=== PATIENT | female | born 1945 | race Caucasian/White ===

== ENCOUNTER 2017-01-07 13:58 | Inpatient (IN) | payer MEDICARE, BC ==
[2017-01-07] MEDS ORDERED: IPRATROPIUM 0.5 MG/2.5 ML NEBU INHALATION STA (14:31)
[2017-01-07] MEDS ORDERED: ALBUTEROL NEBULIZED 2.5 MG/3 ML INHALATION STA (14:31)
[2017-01-07] MEDS ORDERED: methylPREDNISolone SOD SUCCI 125 MG/2 ML VIAL IV STA (14:31)
--- NOTE | 2017-01-07 14:37 | ED ---
General Adult HPI - General Chief complaint: Shortness of Breath Stated complaint: SOB Time Seen by Provider: 01/07/17 14:18 Source: patient, RN notes reviewed, old records reviewed Mode of arrival: wheelchair Limitations: no limitations - History of Present Illness Initial comments: 71-year-old with history of lung cancer and bone cancer presents for evaluation of shortness of breath. Patient states she has been short of breath for weeks to months. Also reports a mild cough which is somewhat productive. Patient's last chemotherapy for her lung cancer was one month ago. Patient is somewhat confused on examination, additional history obtained from the patient's and daughter who are at bedside. Patient had a home nurse evaluate her today, was noted to be hypoxic in the high 80s at home. Patient does not wear home oxygen normally. She has remote history of tobacco use proximally 30 pack years. Patient does complain of subjective fevers. No abdominal pain. No nausea vomiting or diarrhea. - Related Data Home Medications Medication Instructions Recorded Confirmed HYDROcodone/APAP 10-325MG [[place] 1 - 2 tab PO Q6H PRN 01/07/17 01/07/17 10-325] LORazepam [Ativan] 0.5 mg PO HS PRN 01/07/17 01/07/17 Lactulose 10 gm PO BID 01/07/17 01/07/17 Levothyroxine Sodium [Synthroid] 75 mcg PO DAILY 01/07/17 01/07/17 Morphine Sulfate ER [Ms Contin 30 mg PO Q12HR 01/07/17 01/07/17 30Mg] Omeprazole [PriLOSEC] 20 mg PO AC-BID 01/07/17 01/07/17 Oxybutynin Chloride [Ditropan] 5 mg PO TID 01/07/17 01/07/17 Allergies Allergy/AdvReac Type Severity Reaction Status Date / Time No Known Allergies Allergy Verified 01/07/17 15:19 Review of Systems ROS Statement: Those systems with pertinent positive or pertinent negative responses have been documented in the HPI. ROS Other: All systems not noted in ROS Statement are negative. Past Medical History Past Medical History: Cancer Additional Past Medical History / Comment(s): lung cancer, bone cancer History of Any Multi-Drug Resistant Organisms: None Reported Past Surgical History: Back Surgery Past Psychological History: No Psychological Hx Reported Smoking Status: Former smoker Past Alcohol Use History: None Reported Past Drug Use History: None Reported General Exam Limitations: no limitations General appearance: alert, in no apparent distress Head exam: Present: atraumatic, normocephalic Eye exam: Present: normal appearance, PERRL ENT exam: Present: mucous membranes dry Neck exam: Present: normal inspection. Absent: tenderness, meningismus Respiratory exam: Present: wheezes, prolonged expiratory. Absent: respiratory distress Cardiovascular Exam: Present: regular rate, normal rhythm GI/Abdominal exam: Present: soft. Absent: distended, tenderness Extremities exam: Present: normal inspection, other ( left lower extremity swelling.). Absent: calf tenderness Neurological exam: Present: alert. Absent: oriented X3 ( 2), motor sensory deficit Psychiatric exam: Present: normal affect, normal mood Skin exam: Present: warm, dry, intact. Absent: cyanosis, diaphoretic Course Vital Signs 01/07/17 01/07/17 01/07/17 14:07 14:20 14:54 Temperature 97.9 F Pulse Rate 94 93 Respiratory 20 24 18 Rate Blood Pressure 126/73 O2 Sat by Pulse 88 L Oximetry 01/07/17 01/07/17 01/07/17 15:00 15:05 15:30 Temperature Pulse Rate 95 96 94 Respiratory 24 18 22 Rate Blood Pressure 119/56 116/58 O2 Sat by Pulse 95 96 Oximetry EKG Findings - EKG Comments: EKG Findings:: EKG shows sinus rhythm, left atrial enlargement, left bundle branch block, this does not meet [place] criteria. Ventricular rate 89,. Vital 156, QRS duration 144, QTC 498 Medical Decision Making - Medical Decision Making 71-year-old female with stage IV lung cancer presents for evaluation of hypoxia and shortness of breath. On examination patient does have bilateral and x-ray wheezing. No formal diagnosis of COPD, however she does have a significant history of tobacco use. X-rays obtained, shows right pleural reaction, large spiculated mass, no focal pneumonia. Laboratory studies reveal mild pancytopenia, white blood cell count 3.4, hemoglobin 10.4, platelets 127. Lactic acid is normal at 1.5. Troponin is elevated at 0.058. There is no active chest pain. Previous EKGs will be obtained for comparison. Case is discussed with cardiology, Dr. Riggins, patient will be given an aspirin, and enzymes will be trended. Diagnosis: Reactive airway disease, stage IV lung cancer, dehydration - Lab Data Result diagrams: 01/07/17 14:20 01/07/17 14:20 Lab Results 01/07/17 01/07/17 01/07/17 Range/Units 14:20 14:20 14:20 WBC 3.4 L (3.8-10.6) k/uL RBC 3.31 L (3.80-5.40) m/uL Hgb 10.4 L (11.4-16.0) gm/dL Hct 33.0 L (34.0-46.0) % MCV 99.7 (80.0-100.0) fL MCH 31.3 (25.0-35.0) pg MCHC 31.4 (31.0-37.0) g/dL RDW 16.0 H (11.5-15.5) % Plt Count 127 L (150-450) k/uL Neutrophils % 65 % Lymphocytes % 19 % Monocytes % 7 % Eosinophils % 6 % Basophils % 1 % Neutrophils # 2.2 (1.3-7.7) k/uL Lymphocytes # 0.6 L (1.0-4.8) k/uL Monocytes # 0.3 (0-1.0) k/uL Eosinophils # 0.2 (0-0.7) k/uL Basophils # 0.0 (0-0.2) k/uL Hypochromasia Moderate Poikilocytosis Slight Macrocytosis Slight PT (9.0-12.0) sec INR (<1.2) APTT (22.0-30.0) sec VBG pH (7.31-7.41) VBG pCO2 (37-51) mmHg VBG HCO3 (24-28) mmol/L Sodium 142 (137-145) mmol/L Potassium 4.1 (3.5-5.1) mmol/L Chloride 104 (98-107) mmol/L Carbon Dioxide 26 (22-30) mmol/L Anion Gap 12 mmol/L BUN 16 (7-17) mg/dL Creatinine 0.82 (0.52-1.04) mg/dL Est GFR (MDRD) Af Amer >60 (>60 ml/min/1.73 sqM) Est GFR (MDRD) Non-Af >60 (>60 ml/min/1.73 sqM) Glucose 73 L (74-99) mg/dL Plasma Lactic Acid Demar (0.7-2.0) mmol/L Calcium 8.5 (8.4-10.2) mg/dL Magnesium 2.1 (1.6-2.3) mg/dL Total Bilirubin 0.6 (0.2-1.3) mg/dL AST 60 H (14-36) U/L ALT 36 (9-52) U/L Alkaline Phosphatase 245 H (38-126) U/L Total Creatine Kinase 52 (30-135) U/L CK-MB (CK-2) 0.6 (0.0-2.4) ng/mL CK-MB (CK-2) Rel Index 1.2 Troponin I 0.058 H* (0.000-0.034) ng/mL NT-Pro-B Natriuret Pep pg/mL Total Protein 8.1 (6.3-8.2) g/dL Albumin 3.5 (3.5-5.0) g/dL 01/07/17 01/07/17 01/07/17 Range/Units 14:20 14:20 14:20 WBC (3.8-10.6) k/uL RBC (3.80-5.40) m/uL Hgb (11.4-16.0) gm/dL Hct (34.0-46.0) % MCV (80.0-100.0) fL MCH (25.0-35.0) pg MCHC (31.0-37.0) g/dL RDW (11.5-15.5) % Plt Count (150-450) k/uL Neutrophils % % Lymphocytes % % Monocytes % % Eosinophils % % Basophils % % Neutrophils # (1.3-7.7) k/uL Lymphocytes # (1.0-4.8) k/uL Monocytes # (0-1.0) k/uL Eosinophils # (0-0.7) k/uL Basophils # (0-0.2) k/uL Hypochromasia Poikilocytosis Macrocytosis PT 12.4 H (9.0-12.0) sec INR 1.3 H (<1.2) APTT 22.7 (22.0-30.0) sec VBG pH (7.31-7.41) VBG pCO2 (37-51) mmHg VBG HCO3 (24-28) mmol/L Sodium (137-145) mmol/L Potassium (3.5-5.1) mmol/L Chloride (98-107) mmol/L Carbon Dioxide (22-30) mmol/L Anion Gap mmol/L BUN (7-17) mg/dL Creatinine (0.52-1.04) mg/dL Est GFR (MDRD) Af Amer (>60 ml/min/1.73 sqM) Est GFR (MDRD) Non-Af (>60 ml/min/1.73 sqM) Glucose (74-99) mg/dL Plasma Lactic Acid Demar 1.5 (0.7-2.0) mmol/L Calcium (8.4-10.2) mg/dL Magnesium (1.6-2.3) mg/dL Total Bilirubin (0.2-1.3) mg/dL AST (14-36) U/L ALT (9-52) U/L Alkaline Phosphatase (38-126) U/L Total Creatine Kinase (30-135) U/L CK-MB (CK-2) (0.0-2.4) ng/mL CK-MB (CK-2) Rel Index Troponin I (0.000-0.034) ng/mL NT-Pro-B Natriuret Pep 379 pg/mL Total Protein (6.3-8.2) g/dL Albumin (3.5-5.0) g/dL 01/07/17 Range/Units 14:20 WBC (3.8-10.6) k/uL RBC (3.80-5.40) m/uL Hgb (11.4-16.0) gm/dL Hct (34.0-46.0) % MCV (80.0-100.0) fL MCH (25.0-35.0) pg MCHC (31.0-37.0) g/dL RDW (11.5-15.5) % Plt Count (150-450) k/uL Neutrophils % % Lymphocytes % % Monocytes % % Eosinophils % % Basophils % % Neutrophils # (1.3-7.7) k/uL Lymphocytes # (1.0-4.8) k/uL Monocytes # (0-1.0) k/uL Eosinophils # (0-0.7) k/uL Basophils # (0-0.2) k/uL Hypochromasia Poikilocytosis Macrocytosis PT (9.0-12.0) sec INR (<1.2) APTT (22.0-30.0) sec VBG pH 7.33 (7.31-7.41) VBG pCO2 49 (37-51) mmHg VBG HCO3 26 (24-28) mmol/L Sodium (137-145) mmol/L Potassium (3.5-5.1) mmol/L Chloride (98-107) mmol/L Carbon Dioxide (22-30) mmol/L Anion Gap mmol/L BUN (7-17) mg/dL Creatinine (0.52-1.04) mg/dL Est GFR (MDRD) Af Amer (>60 ml/min/1.73 sqM) Est GFR (MDRD) Non-Af (>60 ml/min/1.73 sqM) Glucose (74-99) mg/dL Plasma Lactic Acid Demar (0.7-2.0) mmol/L Calcium (8.4-10.2) mg/dL Magnesium (1.6-2.3) mg/dL Total Bilirubin (0.2-1.3) mg/dL AST (14-36) U/L ALT (9-52) U/L Alkaline Phosphatase (38-126) U/L Total Creatine Kinase (30-135) U/L CK-MB (CK-2) (0.0-2.4) ng/mL CK-MB (CK-2) Rel Index Troponin I (0.000-0.034) ng/mL NT-Pro-B Natriuret Pep pg/mL Total Protein (6.3-8.2) g/dL Albumin (3.5-5.0) g/dL Disposition Clinical Impression: Acute exacerbation of chronic obstructive airways disease, Dehydration Disposition: ADMITTED IP TO THIS [facility] Condition: Stable Referrals: Alexa Lozoya DO [Primary Care Provider] - 1-2 days Decision to Admit Reason: Admit from EC Decision Date: 01/07/17 Decision Time: 16:10
[2017-01-07 14:59] LABS: VBG PH 7.33 (7.31-7.41)
[2017-01-07 15:02] LABS: Basophils % (A) 1 %; CH 30.8; CHCM 31.2; Eosinophils # (A) 0.2 k/uL (0-0.7); Eosinophils % (A) 6 %; HDW 3.82; HGB 10.4 gm/dL (11.4-16.0); Hypochromasia Moderate; Luc % (Auto) 3; Lymphocytes # (A) 0.6 k/uL (1.0-4.8); Lymphocytes % (A) 19 %; MCH 31.3 pg (25.0-35.0); MCHC 31.4 g/dL (31.0-37.0); MCV 99.7 fL (80.0-100.0); Macrocytosis Slight; Mean Platelet Volume 8.2; Monocytes # (A) 0.3 k/uL (0-1.0); Monocytes % (A) 7 %; Neutrophils # (A) 2.2 k/uL (1.3-7.7); Neutrophils % (A) 65 %; Poikilocytosis Slight; RBC 3.31 m/uL (3.80-5.40); WBC 3.4 k/uL (3.8-10.6); WBC (Perox) 3.15
[2017-01-07 15:10] LABS: ALT 36 U/L (9-52); AST 60 U/L (14-36); Alkaline Phosphatase 245 U/L (38-126); Anion Gap 12 mmol/L; Blood Urea Nitrogen 16 mg/dL (7-17); Calcium 8.5 mg/dL (8.4-10.2); Carbon Dioxide 26 mmol/L (22-30); Chloride 104 mmol/L (98-107); Glucose 73 mg/dL (74-99); Magnesium 2.1 mg/dL (1.6-2.3); Non-African American GFR(MDRD) >60 (>60 ml/min/1.73 sqM); Potassium 4.1 mmol/L (3.5-5.1); Sodium 142 mmol/L (137-145); Total Bilirubin 0.6 mg/dL (0.2-1.3); Total Protein 8.1 g/dL (6.3-8.2)
[2017-01-07 15:14] LABS: INR 1.3 (<1.2); Partial Thromboplastin Time 22.7 sec (22.0-30.0); Prothrombin Time 12.4 sec (9.0-12.0)
--- NOTE | 2017-01-07 15:27 | XR ---
EXAMINATION TYPE: XR chest 2V DATE OF EXAM: 01/07/2017 HISTORY: difficulty breathing. REFERENCE: None. FINDINGS: Tubing projects over the right hemithorax. The tip appears to be at the cavoatrial junction . There is increased density at the right lung base. There is a pleural reaction on the right. The left lung is clear. Heart size upper limits of normal in size. On the lateral projection there is ar 8.6 x 6.5 cm spiculated mass. IMPRESSION: 1. RIGHT-SIDED PLEURAL REACTION. 2. LARGE SPICULATED MASS SEEN ONLY CLEARLY ON THE LATERAL PROJECTION. A CT SCAN OF THE CHEST WOULD BE SUGGESTED.
[2017-01-07 15:34] LABS: Creatine Kinase MB 0.6 ng/mL (0.0-2.4)
[2017-01-07 15:39] LABS: Troponin I 0.058 ng/mL (0.000-0.034)
[2017-01-07] MEDS ORDERED: IPRATROPIUM-ALBUTEROL 3 ML NEB INHALATION PRN ×2 (16:05→19:43)
[2017-01-07] MEDS ORDERED: NALOXONE 0.4 MG/ML 1 ML VIAL IV PRN (16:10)
[2017-01-07] MEDS ORDERED: ACETAMINOPHEN TAB 325 MG TAB PO PRN (16:10)
[2017-01-07] MEDS ORDERED: ASPIRIN 325 MG TAB PO STA (16:12)
[2017-01-07] MEDS: MORPHINE SULFATE 10 MG/ML SYRINGE IV PRN (19:11)
[2017-01-07 19:40] LABS: Creatine Kinase MB 0.5 ng/mL (0.0-2.4)
[2017-01-07 19:43] LABS: Troponin I 0.041 ng/mL (0.000-0.034)
[2017-01-07] MEDS: INSULIN LISPRO (humaLOG) 300 UNIT/3 ML VIAL SQ SCH (20:45)
[2017-01-07 20:50] LABS: Glucose,Whole Blood 89 mg/dL (75-99)
[2017-01-07] MEDS: OXYBUTYNIN CHLORIDE 5 MG TAB PO SCH (20:50)
[2017-01-07] MEDS: LACTULOSE 20 GM/30 ML CUP PO SCH (20:50)
[2017-01-07] MEDS: D5-0.45% NACL WITH KCL 20MEQ/L 1,000 ML IV SCH (20:55)
[2017-01-07] MEDS: SYMBICORT 160-4.5 MCG INHALER INHALATION SCH (21:32)
[2017-01-07] MEDS: IPRATROPIUM-ALBUTEROL 3 ML NEB INHALATION SCH (21:32)
[2017-01-07] MEDS: MORPHINE SULFATE ER 30 MG TABLET PO SCH (23:28)
[2017-01-08] MEDS: methylPREDNISolone SOD SUCCI 125 MG/2 ML VIAL IV SCH ×5 (00:06→23:12)
[2017-01-08] MEDS: HYDROcodone/APAP 10-325MG 1 EACH TAB PO PRN ×3 (00:08→21:50)
[2017-01-08 03:17] LABS: Anisocytosis Slight; Basophils % (A) 1 %; CH 30.9; CHCM 30.6; Eosinophils % (A) 1 %; HCT 28.5 % (34.0-46.0); Hypochromasia Marked; Luc # (Auto) 0.04; Luc % (Auto) 2; Lymphocytes # (A) 0.4 k/uL (1.0-4.8); Lymphocytes % (A) 18 %; MCH 30.7 pg (25.0-35.0); MCHC 30.1 g/dL (31.0-37.0); MCV 101.9 fL (80.0-100.0); Macrocytosis Slight; Mean Platelet Volume 8.3; Monocytes % (A) 2 %; Neutrophils # (A) 1.8 k/uL (1.3-7.7); Neutrophils % (A) 77 %; Poikilocytosis Slight; RDW 16.2 % (11.5-15.5); WBC 2.4 k/uL (3.8-10.6)
[2017-01-08 03:27] LABS: HGB 8.6 gm/dL (11.4-16.0)
[2017-01-08 03:29] LABS: Anion Gap 11 mmol/L; Blood Urea Nitrogen 18 mg/dL (7-17); Calcium 7.9 mg/dL (8.4-10.2); Carbon Dioxide 21 mmol/L (22-30); Chloride 106 mmol/L (98-107); Glucose 147 mg/dL (74-99); Non-African American GFR(MDRD) >60 (>60 ml/min/1.73 sqM); Potassium 4.5 mmol/L (3.5-5.1); Sodium 138 mmol/L (137-145)
[2017-01-08 04:04] LABS: Troponin I 0.053 ng/mL (0.000-0.034)
[2017-01-08] MEDS: LEVOTHYROXINE 75 MCG TAB PO SCH (05:10)
[2017-01-08] MEDS: LORazepam 0.5 MG TAB PO PRN ×2 (05:10→23:12)
[2017-01-08] MEDS: MORPHINE SULFATE 10 MG/ML SYRINGE IV PRN (05:11)
[2017-01-08 06:11] LABS: Glucose,Whole Blood 137 mg/dL (75-99)
[2017-01-08] MEDS: INSULIN LISPRO (humaLOG) 300 UNIT/3 ML VIAL SQ SCH ×4 (06:51→20:56)
--- NOTE | 2017-01-08 07:38 | XR ---
EXAMINATION TYPE: XR chest 2V DATE OF EXAM: 01/08/2017 HISTORY: Copd Exac. REFERENCE: Previous study dated 01/07/2017. FINDINGS: Catheter tubing projects over the right chest. The tip appears to be in the superior vena c vignesh. There is right basilar airspace disease. There is shift of the mediastinal structures towards the rig ht. The heart is enlarged. There continues to be a spiculated density on the lateral view just environmental web crawler ior to the heart. IMPRESSION: NO SIGNIFICANT INTERVAL CHANGE IN THE APPEARANCE OF THE CHEST.
[2017-01-08] MEDS: PANTOPRAZOLE 40 MG TABLET PO SCH ×2 (08:06→16:34)
[2017-01-08] MEDS: D5-0.45% NACL WITH KCL 20MEQ/L 1,000 ML IV SCH ×2 (08:06→23:14)
[2017-01-08] MEDS: MORPHINE SULFATE ER 30 MG TABLET PO SCH ×2 (08:06→20:55)
[2017-01-08] MEDS: OXYBUTYNIN CHLORIDE 5 MG TAB PO SCH ×3 (08:06→20:56)
[2017-01-08] MEDS: LACTULOSE 20 GM/30 ML CUP PO SCH ×2 (08:07→20:55)
[2017-01-08] MEDS ORDERED: predniSONE 50 MG TAB PO SCH (09:00)
[2017-01-08] MEDS: SYMBICORT 160-4.5 MCG INHALER INHALATION SCH ×2 (09:38→21:04)
[2017-01-08] MEDS: IPRATROPIUM-ALBUTEROL 3 ML NEB INHALATION SCH ×4 (09:38→21:04)
--- NOTE | 2017-01-08 09:39 | P.CRDCN ---
History of Present Illness Consult date: 01/08/17 Requesting physician: Vania Martins Reason for Consult (text): LBBB, elevated trop Chief complaint: low oxygen saturation History of present illness: this is a pleasant 71-year-old female patient with history of stage IV lung cancer with metastasis to the bone, left chemotherapy treatment about a month ago, recently completed treatment with Keytruda. she presented to the emergency department after she was noted to have a low oxygen saturation at home by visiting nurse, and the high 80s. Patient does not wear home oxygen and has not previously been noted to have low oxygen saturation.the patient is quite drowsy so most most of the HPI was obtained from the chart and family. According to family, patient has been complaining of intermittent pain in different areas of her body including her back, chest, hip and abdomen. Patient does verbalize having shortness of breath with activity. EKG on admission showed sinus rhythm with left bundle branch block, it is unclear if this is new as we have no EKG to compare. According to family, patient has had previous cardiac workup many years ago due to a murmur and an irregular heart beat. mild elevation in troponins were noted at 0.058, 0.041 and 0.053. Her proBNP was not elevated at 379. initial labs showed a hemoglobin of 10.4 with a repeat of 8.6 this morning. chest x-ray showed right-sided pleural reaction with a large spiculated mass seen clearly on the lateral projection and recommended a computed tomography scan of the chest. In discussing with the family, they're unclear as to what the plan R prognosis for her cancer is, they' re currently not happy with her oncologist out of [facility]. Upon examination , patient is resting comfortably in bed in no acute distress. She is quite drowsy which according to the family has been normal for her recently. She has no current complaints of chest discomfort, palpitations, dizziness or lightheadedness has had no syncope or edema is of breath at rest with head of bed flat. Past Medical History Past Medical History: Cancer, GERD/Reflux, Hypertension Additional Past Medical History / Comment(s): lung cancer, bone cancer, ulcer in past,hiatal hernia, constipation-no bm in 5 days History of Any Multi-Drug Resistant Organisms: None Reported Past Surgical History: Back Surgery, Section, Cholecystectomy, Orthopedic Surgery, Tubal Ligation Additional Past Surgical History / Comment(s): lt foot sx , 3 back sx, 2 c- sections egd/colonoscopy Past Anesthesia/Blood Transfusion Reactions: No Reported Reaction Additional Past Anesthesia/Blood Transfusion Reaction / Comment(s): "very clausterphobic" Smoking Status: Former smoker - Past Family History Father Family Medical History: Cancer Mother Additional Family Medical History / Comment(s): "had a split personality" Medications and Allergies Home Medications Medication Instructions Recorded Confirmed Type HYDROcodone/APAP 10-325MG [[place] 1 - 2 tab PO Q6H PRN 01/07/17 01/07/17 History 10-325] LORazepam [Ativan] 0.5 mg PO HS PRN 01/07/17 01/07/17 History Lactulose 10 gm PO BID 01/07/17 01/07/17 History Levothyroxine Sodium [Synthroid] 75 mcg PO DAILY 01/07/17 01/07/17 History Morphine Sulfate ER [Ms Contin 30 mg PO Q12HR 01/07/17 01/07/17 History 30Mg] Omeprazole [PriLOSEC] 20 mg PO AC-BID 01/07/17 01/07/17 History Oxybutynin Chloride [Ditropan] 5 mg PO TID 01/07/17 01/07/17 History Allergies Allergy/AdvReac Type Severity Reaction Status Date / Time No Known Allergies Allergy Verified 01/07/17 15:19 Physical Exam Vitals: Vital Signs Temp Pulse Pulse Resp BP BP Pulse Ox 01/08/17 04:00 97.5 F L 75 16 129/72 94 L 01/07/17 23:30 98 16 110/73 94 L 01/07/17 21:41 91 01/07/17 21:32 89 94 L 01/07/17 20:00 97.7 F 97 16 105/72 95 01/07/17 19:23 95 18 01/07/17 18:54 97.8 F 99 16 126/68 94 L 01/07/17 17:59 98.6 F 78 20 132/90 98 01/07/17 16:26 103 H 16 126/51 96 01/07/17 15:30 94 22 116/58 96 01/07/17 15:05 96 18 01/07/17 15:00 95 24 119/56 95 11/03/17 14:54 93 18 01/07/17 14:20 24 01/07/17 14:07 97.9 F 94 20 126/73 88 L Intake and Output 01/07/17 01/08/17 01/08/17 22:59 06:59 14:59 Intake Total 50 750 Output Total 25 200 Balance 25 550 Intake: Intake, IV Titration 750 Amount D5-0.45% NaCl with KCl 750 20Meq/l 1,000 ml @ 75 mls /hr IV .[id number] KHUSHI Rx#: [id number] Oral 50 Output: Urine 25 200 Other: # Voids 1 Weight 61 kg PHYSICAL EXAMINATION: HEENT: Head is atraumatic, normocephalic. Pupils equal, round. Neck is supple. There is no elevated jugular venous pressure. HEART EXAMINATION: Heart sounds regular, S1 and S2 with a systolic murmur. CHEST EXAMINATION: Lungs reveal diminished air entry bilaterally. No chest wall tenderness is noted on palpation or with deep breathing. ABDOMEN: Soft, nontender. Bowel sounds are heard. No organomegaly noted. EXTREMITIES: 2+ peripheral pulses with no evidence of peripheral edema and no calf tenderness noted. NEUROLOGIC patient is awake, drowsy and oriented x3. . Results 01/08/17 02:54 01/08/17 02:54 Cardiac Enzymes 01/07/17 01/07/17 01/07/17 Range/Units 14:20 14:20 18:50 AST 60 H (14-36) U/L CK-MB (CK-2) 0.6 0.5 (0.0-2.4) ng/mL Troponin I 0.058 H* 0.041 H* (0.000-0.034) ng/mL 01/08/17 Range/Units 02:54 AST (14-36) U/L CK-MB (CK-2) 1.0 (0.0-2.4) ng/mL Troponin I 0.053 H* (0.000-0.034) ng/mL Coagulation 01/07/17 Range/Units 14:20 PT 12.4 H (9.0-12.0) sec APTT 22.7 (22.0-30.0) sec CBC 01/07/17 01/08/17 Range/Units 14:20 02:54 WBC 3.4 L 2.4 L (3.8-10.6) k/uL RBC 3.31 L 2.80 L (3.80-5.40) m/uL Hgb 10.4 L 8.6 L D (11.4-16.0) gm/dL Hct 33.0 L 28.5 L (34.0-46.0) % Plt Count 127 L 108 L (150-450) k/uL Comprehensive Metabolic Panel 01/07/17 01/08/17 Range/Units 14:20 02:54 Sodium 142 138 (137-145) mmol/L Potassium 4.1 4.5 (3.5-5.1) mmol/L Chloride 104 106 (98-107) mmol/L Carbon Dioxide 26 21 L (22-30) mmol/L BUN 16 18 H (7-17) mg/dL Creatinine 0.82 0.70 (0.52-1.04) mg/dL Glucose 73 L 147 H (74-99) mg/dL Calcium 8.5 7.9 L (8.4-10.2) mg/dL AST 60 H (14-36) U/L ALT 36 (9-52) U/L Alkaline Phosphatase 245 H (38-126) U/L Total Protein 8.1 (6.3-8.2) g/dL Albumin 3.5 (3.5-5.0) g/dL Current Medications Generic Name Dose Route Start Last Admin Trade Name Freq PRN Reason Stop Dose Admin Acetaminophen 650 mg 01/07/17 16:10 Tylenol Tab PO Q6HR PRN Mild Pain or Fever > 100.5 Hydrocodone Bitart/Acetaminophen 1 each 01/07/17 19:44 01/08/17 00:08 [place] 10 PO 1 each Q6H PRN Administration Mild to Moderate Pain Albuterol/Ipratropium 3 ml 01/07/17 19:43 Duoneb 0.5 Mg-3 Mg/3 Ml Soln INHALATION RT-Q2H PRN Shortness Of Breath Or Wheezing Albuterol/Ipratropium 3 ml 01/07/17 20:00 01/07/17 21:32 Duoneb 0.5 Mg-3 Mg/3 Ml Soln INHALATION 3 ml RT-QID KHUSHI Administration Budesonide/Formoterol Fumarate 2 puff 01/07/17 20:00 01/07/17 21:32 Symbicort 160-4.5 Mcg Inhaler INHALATION 2 puff RT-BID KHUSHI Administration Potassium Chloride/Dextrose/Sod Cl 1,000 mls @ 75 mls/hr 01/07/17 18:00 01/08 08:06 D5%-1/2ns-Kcl 20 Meq/L Iv Solution IV 75 mls/hr .[id number] KHUSHI Administration Insulin Human Lispro 0 unit 01/07/17 21:00 01/08/17 06:51 Humalog SQ Not Given ACHS [facility] Protocol Lactulose 10 gm 01/07/17 21:00 01/08/17 08:07 Cephulac PO 10 gm BID KHUSHI Administration Levothyroxine Sodium 75 mcg 01/08/17 06:30 01/08/17 05:10 Synthroid PO 75 mcg 0630 KHUSHI Administration Lorazepam 0.5 mg 01/07/17 19:44 01/08/17 05:10 Ativan PO 0.5 mg HS PRN Administration Anxiety Methylprednisolone Sodium Succinate 60 mg 01/08/17 00:00 01/08/17 05:10 Solu-Medrol IV 60 mg Q6HR KHUSHI Administration Morphine Sulfate 4 mg 01/07/17 16:10 01/08/17 05:11 Morphine Sulfate (Inj) IV 4 mg Q4HR PRN Administration Severe Pain Morphine Sulfate 30 mg 01/07/17 21:00 01/08/17 08:06 Ms Contin PO 30 mg Q12HR KHUSHI Administration Naloxone HCl 0.2 mg 01/07/17 16:10 Narcan IV Q2M PRN Opioid Reversal Oxybutynin Chloride 5 mg 01/07/17 22:00 01/08/17 08:06 Ditropan PO 5 mg TID KHUSHI Administration Pantoprazole Sodium 40 mg 01/08/17 07:30 01/08/17 08:06 Protonix PO 40 mg AC-BID KHUSHI Administration Intake and Output 01/07/17 01/08/17 01/08/17 22:59 06:59 14:59 Intake Total 50 750 Output Total 25 200 Balance 25 550 Intake: Intake, IV Titration 750 Amount D5-0.45% NaCl with KCl 750 20Meq/l 1,000 ml @ 75 mls /hr IV .[id number] KHUSHI Rx#: [id number] Oral 50 Output: Urine 25 200 Other: # Voids 1 Weight 61 kg 01/08/17 02:54 01/08/17 02:54 EKG Interpretations (text) sinus rhythm with a left bundle branch block Assessment and Plan Assessment: #1 stage IV lung cancer with metastasis #2 hypoxia #3 mild troponin leak likelysecondary to a type II event due to oxygen supply and demand mismatch #4 left bundle branch block, unknown if this is new Plan: From cardiology's perspective, we will obtain a 2-D echo with doppler to assess LV function. We will monitor the patient for further symptoms. Recommend medical management at this time. Await input form oncology. Further recommendations to follow. REPROGRAPHICS TECHNICIAN note has been reviewed, I agree with a documented findings and plan of care. Patient was seen and examined.
[2017-01-08 11:38] LABS: Glucose,Whole Blood 193 mg/dL (75-99)
--- NOTE | 2017-01-08 15:17 | ECHOF ---
Referral Reason:LBBB, elevated trop MEASUREMENTS -------- HEIGHT: 162.6 cm WEIGHT: 60.8 kg BP: IVSd: 1.3 cm (0.6 - 1.1) LVIDd: 4.0 cm (3.9 - 5.3) LVPWd: 1.2 cm (0.6 - 1.1) IVSs: 1.4 cm LVIDs: 2.7 cm LVPWs: 1.2 cm LAESV Index (A-L): 37.95 ml/m Ao Diam: 3.3 cm (2.0 - 3.7) AV Cusp: 1.2 cm (1.5 - 2.6) LA Diam: 3.8 cm (2.7 - 3.8) EPSS: 0.7 cm MV E Jeremi: 0.61 m/s MV DecT: 228 ms MV A Jeremi: 1.32 m/s MV E/A Ratio: 0.46 RAP: 5.00 mmHg RVSP: 34.83 mmHg MV EF SLOPE: 43.53 mm/s (70 - 150) MV EXCURSION: 1.47 cm (> 18.000) FINDINGS -------- Sinus rhythm. This was a technically adequate study. The left ventricular size is normal. There is moderate concentric left ventricular hypertrophy. O verall left ventricular systolic function is low-normal with, an EF between 50 - 55 %. The right ventricle is normal in size. LA is moderately dilated 34-39 ml/m2 The right atrial size is normal. The aortic valve is trileaflet, and appears structurally normal. No aortic stenosis or regurgitation. Mild mitral regurgitation is present. Mild tricuspid regurgitation present. Right ventricular systolic pressure is normal at < 35 mmHg. Trace/mild (physiologic) pulmonic regurgitation. The aortic root size is normal. There is a trivial pericardial effusion present. CONCLUSIONS -------- 1. Sinus rhythm. 2. This was a technically adequate study. 3. The left ventricular size is normal. 4. There is moderate concentric left ventricular hypertrophy. 5. Overall left ventricular systolic function is low-normal with, an EF between 50 - 55 %. 6. The right ventricle is normal in size. 7. LA is moderately dilated 34-39 ml/m2 8. The aortic valve is trileaflet, and appears structurally normal. No aortic stenosis or regurgitati on. 9. Mild mitral regurgitation is present. 10. Mild tricuspid regurgitation present. 11. Right ventricular systolic pressure is normal at < 35 mmHg. 12. Trace/mild (physiologic) pulmonic regurgitation. 13. The aortic root size is normal. 14. There is a trivial pericardial effusion present. MOBILE PET GROOMER: Sarah Sharif RDCS
[2017-01-08 15:37] LABS: Appearance,Urine Cloudy (Clear); Bacteria,Urine Occasional /hpf; Bilirubin,Urine 1+ (Negative); Glucose,Urine (UA) Negative (Negative); Ketones,Urine 1+ (Negative); Leukocyte Esterase,Urine Small (Negative); Mucus,Urine Few /hpf; Nitrite,Urine Negative (Negative); Particle Count 17027; Protein,Urine 1+ (Negative); RBC,Urine 10 /hpf (0-5); Specific Gravity,Urine 1.023 (1.001-1.035); Squamous Epithelial Cell,Urine 5 /hpf (0-4); UA Billing (MACRO vs. MICRO) MICRO; WBC,Urine 17 /hpf (0-5)
--- NOTE | 2017-01-08 16:07 | CONS ---
CONSULTATION REASON FOR CONSULTATION: Lung carcinoma. CHIEF COMPLAINT: Weakness and short of breath. Liz is a very pleasant 71-year-old lady whom I met today for the first time. Apparently she was diagnosed with metastatic lung carcinoma in August of 2016, this year, and she has been receiving her treatment at [facility]. There is no record available to me at this point in time. However, per the history that was provided to me by the patient's who is at bedside, apparently she was diagnosed with bone metastases from the beginning. Per her , she started on chemotherapy first, but she , and then she had radiation therapy to her lung and she had radiation therapy to her left hip due to large metastasis involving her left hip. Subsequently there was further disease progression and she was started on second-line treatment with what sounded like immunotherapy with Keytruda. However, they are not sure about the details. She had about 2 or 3 treatments. Her last treatment was about 2 or 3 weeks ago. She was brought into the emergency department yesterday because she was very short of breath and she was somewhat confused and incoherent. She ended up being admitted to the hospital for exacerbation of COPD and dehydration. The patient currently is in the select unit. She appears alert and answers questions appropriately, but she is not specific about the details. Apparently she has been getting progressively weak since her initial diagnosis in August of 2016, to a point that she cannot even get up in her bed. In fact, yesterday due to her severe weakness she was referred by her home visiting nurse to the emergency department for further evaluation. She has lost over 60 pounds since her initial diagnosis. No headache, chest cough, severe exertional dyspnea. No dysphagia. No melena, hematochezia, hematuria, hemoptysis, hematemesis, epistaxis. She has some back pain but not severe. Her left hip pain improved after she had palliative radiation therapy to it. Also she has started to notice multiple subcutaneous nodules. As stated, her performance status has been extremely poor. She cannot even get up by herself and has no appetite at all. PAST MEDICAL HISTORY: In addition to what is stated above in regard to recent diagnosis of metastatic lung cancer, she has a history of back surgery in the past. SOCIAL HISTORY: She is . She has a 30-pack/year history of smoking. She quit in the past. REVIEW OF SYSTEMS: As stated above in history of present illness; otherwise negative. FAMILY HISTORY: Her mother had cancer. HOME MEDICATION: Her home medications include: 1. [place] 10/325 one to two every 6 hours as needed. 2. Ativan 0.5 mg at bedtime. 3. Lactulose. 4. Synthroid 75 mcg daily. 5. MS Contin 30 mg q.12 hours. 6. Omeprazole 20 mg b.i.d. 7. Ditropan 5 mg t.i.d. ALLERGIES: NO KNOWN DRUG ALLERGY. PHYSICAL EXAMINATION: She is alert. She answers questions appropriately. She is well developed. She is cachectic-looking. Her vital signs are temperature 98.3, afebrile, pulse 81 and regular, respiration 20, blood pressure 121/70, pulse ox 94% on room air. HEENT: Normocephalic, atraumatic. There is no obvious scleral icterus. NECK: Supple. CHEST: bilaterally. Lungs reveal decreased breath sounds at the right base. Heart has regular rate and rhythm. ABDOMEN: Soft. No tenderness or organomegaly or masses. Extremities reveal 1+ edema. SKIN: There are multiple subcutaneous nodules. Noticeably there is one in the left axilla with some skin ulceration about 2 cm. There is also a larger one in the middle of her abdominal wall; it is about 3 cm, hard. There is also a larger one, raised, on the top of her head toward the left. There are a few smaller ones on her back. MUSCULOSKELETAL: There is no percussion tenderness detected over her spine or sternum. She has some limited range of motion in her left hip. LABORATORY DATA: WBC 2.4, hemoglobin 8.7, hematocrit 28.5, platelets 108. Sodium 138, potassium 4.5, chloride 101. CO2 is 21. BUN is 18, creatinine 0.7. Her calcium is 7.9. IMPRESSION: 1. Metastatic lung carcinoma. As stated, her treatment has been done at [facility]. I do not have any records available to me at this point in time, but clinically and per my discussion with the patient and her , apparently she is on her second line of systemic treatment and she did have the radiation therapy before. Her performance status is extremely poor. She has obvious evidence of multiple subcutaneous nodules throughout her body. 2. Anemia and leukopenia, pancytopenia likely related to systemic treatment. RECOMMENDATION: Based on the clinical evaluation with the poor performance status and evidence of multiple subcutaneous nodules, her overall prognosis is felt to be very poor. I did discuss this clinical impression with the patient and her . However, again I do not have all her medical records available to me at this point in time and what treatment she has previously received. I will try to obtain those records early next week, and then we can make further decision. However, the patient and her are open to comfort care and hospice care. I did discuss that with them as well as an option, especially with her rapidly declining performance status, but they are awaiting further recommendations from us once the records are available. Thank you very much for asking me to participate in the care of this nice lady. ARSEN / CESIA: [id number] /
--- NOTE | 2017-01-08 16:23 | P.HPIM ---
History of Present Illness H&P Date: 01/08/17 Chief Complaint: Shortness of breath Patient is a 71-year-old female patient with history of stage IV lung cancer with metastasis to the bone diagnosed in August 2016 status post chemotherapy treatment about a month ago and chemotherapy came to ER with complaints of shortness of breath and found to be hypoxic in the ER. Patient is also complaining of rib pains and she came to the hospital. Patient does have a history of metastatic lung cancer to the bones and also to liver. Patient is a poor historian and most the history was taken from her family at bedside. Patient was also having shortness of breath for the past few days. Initial chest x-ray showed no acute cardio process Troponins are slightly elevated on admission EKG showed sinus rhythm with a bundle branch block of unclear duration. Patient denied any chest pain at this time. Due to her stage IV lung cancer and underlying medical problems patient has poor prognosis and family is considering hospice care at this time. Review of Systems Constitutional: Patient denies any fever or chills . Patient does have generalized weakness and weight loss. Abdomen: Patient denied nausea vomiting and diarrhea and abdominal pain. Cardiovascular: Patient denies any chest pain or short of breath no palpitations. Patient does have exertional short of breath Respiratory: patient denied any cough is from production. Positive shortness of breath Neurologic: Patient denied any numbness or tingling headache. Musculoskeletal: Patient denies any complaints of joint swelling or deformity. Patient does have rib pains. Skin: Negative Psychiatric: Negative Endocrine: No heat or cold intolerance. No recent weight gain. Genitourinary: No dysuria or hematuria. All other 14 point ROS negative except the above Past Medical History Past Medical History: Cancer, GERD/Reflux, Hypertension Additional Past Medical History / Comment(s): lung cancer, bone cancer, ulcer in past,hiatal hernia, constipation-no bm in 5 days History of Any Multi-Drug Resistant Organisms: None Reported Past Surgical History: Back Surgery, Section, Cholecystectomy, Orthopedic Surgery, Tubal Ligation Additional Past Surgical History / Comment(s): lt foot sx , 3 back sx, 2 c- sections egd/colonoscopy Past Anesthesia/Blood Transfusion Reactions: No Reported Reaction Additional Past Anesthesia/Blood Transfusion Reaction / Comment(s): "very clausterphobic" Smoking Status: Former smoker - Past Family History Father Family Medical History: Cancer Mother Additional Family Medical History / Comment(s): "had a split personality" Medications and Allergies Home Medications Medication Instructions Recorded Confirmed Type HYDROcodone/APAP 10-325MG [[place] 1 - 2 tab PO Q6H PRN 01/07/17 01/07/17 History 10-325] LORazepam [Ativan] 0.5 mg PO HS PRN 01/07/17 01/07/17 History Lactulose 10 gm PO BID 01/07/17 01/07/17 History Levothyroxine Sodium [Synthroid] 75 mcg PO DAILY 01/07/17 01/07/17 History Morphine Sulfate ER [Ms Contin 30 mg PO Q12HR 01/07/17 01/07/17 History 30Mg] Omeprazole [PriLOSEC] 20 mg PO AC-BID 01/07/17 01/07/17 History Oxybutynin Chloride [Ditropan] 5 mg PO TID 01/07/17 01/07/17 History Allergies Allergy/AdvReac Type Severity Reaction Status Date / Time No Known Allergies Allergy Verified 01/07/17 15:19 Physical Exam Vitals: Vital Signs Temp Pulse Pulse Resp BP BP Pulse Ox 01/08/17 11:18 98.3 F 81 20 121/70 94 L 01/08/17 11:17 75 20 01/08/17 10:01 80 01/08/17 09:39 76 01/08/17 08:00 97.8 F 75 20 110/64 93 L 01/08/17 04:00 97.5 F L 75 16 129/72 94 L 01/07/17 23:30 98 16 110/73 94 L 01/07/17 21:41 91 01/07/17 21:32 89 94 L 01/07/17 20:00 97.7 F 97 16 105/72 95 01/07/17 19:23 95 18 01/07/17 18:54 97.8 F 99 16 126/68 94 L 01/07/17 17:59 98.6 F 78 20 132/90 98 01/07/17 16:26 103 H 16 126/51 96 01/07/17 15:30 94 22 116/58 96 01/07/17 15:05 96 18 01/07/17 15:00 95 24 119/56 95 01/07/17 14:54 93 18 01/07/17 14:20 24 01/07/17 14:07 97.9 F 94 20 126/73 88 L Intake and Output 01/07/17 01/08/17 01/08/17 22:59 06:59 14:59 Intake Total 50 750 180 Output Total 25 200 Balance 25 550 180 Intake: Intake, IV Titration 750 Amount D5-0.45% NaCl with KCl 750 20Meq/l 1,000 ml @ 75 mls /hr IV .[id number] KHUSHI Rx#: [id number] Oral 50 180 Output: Urine 25 200 Other: # Voids 1 Weight 61 kg 61 kg Patient Weight 01/09/17 05:59 Weight 61 kg PHYSICAL EXAMINATION: Patient is lying in the bed comfortably, no acute distress, awake alert and oriented.. Patient moans with pain intermittently HEENT: Normocephalic. Neck is supple. Pupils reactive. Nostrils clear. Oral cavity is moist. Ears reveal no drainage. Neck reveals no JVD, carotid bruits, or thyromegaly. CHEST EXAMINATION: Trachea is central. Symmetrical expansion. Decreased air entry bilateral basally and no wheezing. CARDIAC: Normal S1, S2 with no gallops. No murmurs ABDOMEN: Soft. Bowel sounds normal. No organomegaly. No abdominal bruits. Extremities: reveal no edema. No clubbing or cyanosis Neurologically awake, alert, lethargic. Able to move all extremities. No focal deficits noted Skin: No rash or skin lesions. Psychiatric:coOperative. Nonsuicidal Musculoskeletal: No joint swelling or deformity. Normal range of motion. Results CBC & Chem 7: 01/08/17 02:54 01/08/17 02:54 Labs: Abnormal Lab Results - Last 24 Hours (Table) 01/07/17 01/07/17 01/07/17 Range/Units 14:20 14:20 14:20 WBC 3.4 L (3.8-10.6) k/uL RBC 3.31 L (3.80-5.40) m/uL Hgb 10.4 L (11.4-16.0) gm/dL Hct 33.0 L (34.0-46.0) % MCV (80.0-100.0) fL MCHC (31.0-37.0) g/dL RDW 16.0 H (11.5-15.5) % Plt Count 127 L (150-450) k/uL Lymphocytes # 0.6 L (1.0-4.8) k/uL PT (9.0-12.0) sec INR (<1.2) Carbon Dioxide (22-30) mmol/L BUN (7-17) mg/dL Glucose 73 L (74-99) mg/dL POC Glucose (mg/dL) (75-99) mg/dL Calcium (8.4-10.2) mg/dL AST 60 H (14-36) U/L Alkaline Phosphatase 245 H (38-126) U/L Troponin I 0.058 H* (0.000-0.034) ng/mL 01/07/17 01/07/17 01/08/17 Range/Units 14:20 18:50 02:54 WBC (3.8-10.6) k/uL RBC (3.80-5.40) m/uL Hgb (11.4-16.0) gm/dL Hct (34.0-46.0) % MCV (80.0-100.0) fL MCHC (31.0-37.0) g/dL RDW (11.5-15.5) % Plt Count (150-450) k/uL Lymphocytes # (1.0-4.8) k/uL PT 12.4 H (9.0-12.0) sec INR 1.3 H (<1.2) Carbon Dioxide (22-30) mmol/L BUN (7-17) mg/dL Glucose (74-99) mg/dL POC Glucose (mg/dL) (75-99) mg/dL Calcium (8.4-10.2) mg/dL AST (14-36) U/L Alkaline Phosphatase (38-126) U/L Troponin I 0.041 H* 0.053 H* (0.000-0.034) ng/mL 01/08/17 01/08/17 01/08/17 Range/Units 02:54 02:54 06:10 WBC 2.4 L (3.8-10.6) k/uL RBC 2.80 L (3.80-5.40) m/uL Hgb 8.6 L D (11.4-16.0) gm/dL Hct 28.5 L (34.0-46.0) % MCV 101.9 H (80.0-100.0) fL MCHC 30.1 L (31.0-37.0) g/dL RDW 16.2 H (11.5-15.5) % Plt Count 108 L (150-450) k/uL Lymphocytes # 0.4 L (1.0-4.8) k/uL PT (9.0-12.0) sec INR (<1.2) Carbon Dioxide 21 L (22-30) mmol/L BUN 18 H (7-17) mg/dL Glucose 147 H (74-99) mg/dL POC Glucose (mg/dL) 137 H (75-99) mg/dL Calcium 7.9 L (8.4-10.2) mg/dL AST (14-36) U/L Alkaline Phosphatase (38-126) U/L Troponin I (0.000-0.034) ng/mL 01/08/17 Range/Units 11:36 WBC (3.8-10.6) k/uL RBC (3.80-5.40) m/uL Hgb (11.4-16.0) gm/dL Hct (34.0-46.0) % MCV (80.0-100.0) fL MCHC (31.0-37.0) g/dL RDW (11.5-15.5) % Plt Count (150-450) k/uL Lymphocytes # (1.0-4.8) k/uL PT (9.0-12.0) sec INR (<1.2) Carbon Dioxide (22-30) mmol/L BUN (7-17) mg/dL Glucose (74-99) mg/dL POC Glucose (mg/dL) 193 H (75-99) mg/dL Calcium (8.4-10.2) mg/dL AST (14-36) U/L Alkaline Phosphatase (38-126) U/L Troponin I (0.000-0.034) ng/mL Assessment and Plan Assessment: #1 stage IV lung cancer metastatic to bones and liver. Status post chemo about a month back #2 hypoxia on admission. Currently saturating well on room air #3 troponin elevation/leak likely due to demand mismatch. Suspected NSTEMI #4 left bundle branch block of unknown duration #5 generalized aches and pains due to metastasis #6 GERD and hiatal hernia history #7 hypertension. Controlled Plan: Patient be continued on pain management and IV hydration. 2-D echo was done to assess left ventricle systolic function. We will continue the current management. Due to underlying medical problems and metastatic lung cancer family is considering comfort care/hospice at the time. We will continue the current management and further recommendations based on the clinical course. Time with Patient: Greater than 30
[2017-01-08 16:50] LABS: Glucose,Whole Blood 143 mg/dL (75-99)
[2017-01-08 21:17] LABS: Glucose,Whole Blood 145 mg/dL (75-99)
[2017-01-09] MEDS: MORPHINE SULFATE 10 MG/ML SYRINGE IV PRN ×3 (03:28→17:00)
[2017-01-09 06:46] LABS: Glucose,Whole Blood 141 mg/dL (75-99)
[2017-01-09] MEDS: methylPREDNISolone SOD SUCCI 125 MG/2 ML VIAL IV SCH ×3 (06:48→18:02)
[2017-01-09] MEDS: PANTOPRAZOLE 40 MG TABLET PO SCH ×2 (06:48→18:01)
[2017-01-09] MEDS: LEVOTHYROXINE 75 MCG TAB PO SCH (06:48)
[2017-01-09 07:01] LABS: Anisocytosis Slight; Basophils % (A) 0 %; CH 30.7; CHCM 30.9; Eosinophils # (A) 0.1 k/uL (0-0.7); Eosinophils % (A) 2 %; HCT 29.1 % (34.0-46.0); HDW 3.82; HGB 8.7 gm/dL (11.4-16.0); Hypochromasia Marked; Luc # (Auto) 0.04; Luc % (Auto) 1; Lymphocytes # (A) 0.3 k/uL (1.0-4.8); Lymphocytes % (A) 7 %; MCH 29.8 pg (25.0-35.0); MCHC 29.8 g/dL (31.0-37.0); MCV 100.1 fL (80.0-100.0); Macrocytosis Slight; Monocytes # (A) 0.1 k/uL (0-1.0); Monocytes % (A) 3 %; Neutrophils # (A) 3.3 k/uL (1.3-7.7); Neutrophils % (A) 87 %; Poikilocytosis Slight; RBC 2.91 m/uL (3.80-5.40); RDW 16.2 % (11.5-15.5); WBC 3.9 k/uL (3.8-10.6); WBC (Perox) 4.02
[2017-01-09 07:14] LABS: Anion Gap 7 mmol/L; Blood Urea Nitrogen 12 mg/dL (7-17); Calcium 7.4 mg/dL (8.4-10.2); Carbon Dioxide 23 mmol/L (22-30); Chloride 106 mmol/L (98-107); Glucose 145 mg/dL (74-99); Non-African American GFR(MDRD) >60 (>60 ml/min/1.73 sqM); Potassium 4.5 mmol/L (3.5-5.1); Sodium 136 mmol/L (137-145)
[2017-01-09] MEDS: LACTULOSE 20 GM/30 ML CUP PO SCH ×2 (08:31→21:22)
[2017-01-09] MEDS: INSULIN LISPRO (humaLOG) 300 UNIT/3 ML VIAL SQ SCH ×4 (08:31→21:21)
[2017-01-09] MEDS: OXYBUTYNIN CHLORIDE 5 MG TAB PO SCH ×3 (08:32→21:21)
[2017-01-09] MEDS: MORPHINE SULFATE ER 30 MG TABLET PO SCH ×2 (08:34→21:22)
[2017-01-09] MEDS: SYMBICORT 160-4.5 MCG INHALER INHALATION SCH ×2 (08:50→19:57)
[2017-01-09] MEDS: IPRATROPIUM-ALBUTEROL 3 ML NEB INHALATION SCH ×4 (08:50→19:57)
[2017-01-09] MEDS: D5-0.45% NACL WITH KCL 20MEQ/L 1,000 ML IV SCH ×2 (10:50→21:24)
[2017-01-09 11:43] LABS: Glucose,Whole Blood 115 mg/dL (75-99)
--- NOTE | 2017-01-09 13:04 | P.PN ---
Subjective Progress Note Date: 01/09/17 Principal diagnosis: Abnormal EKG this is a pleasant 71-year-old female patient with history of stage IV lung cancer with metastasis to the bone, left chemotherapy treatment about a month ago, recently completed treatment with Keytruda. she presented to the emergency department after she was noted to have a low oxygen saturation at home by visiting nurse, and the high 80s. Patient does not wear home oxygen and has not previously been noted to have low oxygen saturation.the patient is quite drowsy so most most of the HPI was obtained from the chart and family. According to family, patient has been complaining of intermittent pain in different areas of her body including her back, chest, hip and abdomen. Patient does verbalize having shortness of breath with activity. EKG on admission showed sinus rhythm with left bundle branch block, it is unclear if this is new as we have no EKG to compare. According to family, patient has had previous cardiac workup many years ago due to a murmur and an irregular heart beat. mild elevation in troponins were noted at 0.058, 0.041 and 0.053. Her proBNP was not elevated at 379. initial labs showed a hemoglobin of 10.4 with a repeat of 8.6 this morning. chest x-ray showed right-sided pleural reaction with a large spiculated mass seen clearly on the lateral projection and recommended a computed tomography scan of the chest. In discussing with the family, they're unclear as to what the plan R prognosis for her cancer is, they' re currently not happy with her oncologist out of [facility]. Upon examination , patient is resting comfortably in bed in no acute distress. She is quite drowsy which according to the family has been normal for her recently. She has no current complaints of chest discomfort, palpitations, dizziness or lightheadedness has had no syncope or edema is of breath at rest with head of bed flat. The patient underwent an echocardiogram which revealed normal LV function without any significant valvular abnormalities. The patient was also evaluated by the oncology service who felt that the patient is of poor prognosis. In review of that we recommended no further cardiac workup at this point of time and will follow-up with the patient on when necessary case. Objective - Vital Signs Vital signs: Vital Signs Temp 98.3 F 01/09/17 11:40 Pulse 76 01/09/17 11:40 Resp 20 01/09/17 11:40 BP 136/81 01/09/17 11:40 Pulse Ox 95 01/09/17 11:40 Intake & Output 01/08/17 01/09/17 01/09/17 19:59 06:59 18:59 Intake Total 40 Output Total 100 Balance -60 Weight Intake: Intake, IV Titration Amount D5-0.45% NaCl with KCl 20Meq/l 1,000 ml @ 75 mls /hr IV .[id number] KHUSHI Rx#: [id number] Oral 40 Output: Urine 100 Other: # Voids - Constitutional General appearance: Present: no acute distress - Respiratory Respiratory: bilateral: CTA - Cardiovascular Rhythm: regular Heart sounds: normal: S1, S2 - Labs CBC & Chem 7: 01/09/17 06:32 01/09/17 06:32 Labs: Abnormal Lab Results - Last 24 Hours (Table) 01/08/17 01/08/17 01/08/17 Range/Units 15:20 16:47 20:49 RBC (3.80-5.40) m/uL Hgb (11.4-16.0) gm/dL Hct (34.0-46.0) % MCV (80.0-100.0) fL MCHC (31.0-37.0) g/dL RDW (11.5-15.5) % Plt Count (150-450) k/uL Lymphocytes # (1.0-4.8) k/uL Sodium (137-145) mmol/L Glucose (74-99) mg/dL POC Glucose (mg/dL) 143 H 145 H (75-99) mg/dL Calcium (8.4-10.2) mg/dL Urine Appearance Cloudy H (Clear) Urine Protein 1+ H (Negative) Urine Ketones 1+ H (Negative) Urine Blood Small H (Negative) Urine Bilirubin 1+ H (Negative) Ur Leukocyte Esterase Small H (Negative) Urine RBC 10 H (0-5) /hpf Urine WBC 17 H (0-5) /hpf Ur Squamous Epith Cells 5 H (0-4) /hpf Urine Bacteria Occasional H (None) /hpf Hyaline Casts 4 H (0-2) /lpf Urine Mucus Few H (None) /hpf 01/09/17 01/09/17 01/09/17 Range/Units 05:57 06:32 06:32 RBC 2.91 L (3.80-5.40) m/uL Hgb 8.7 L (11.4-16.0) gm/dL Hct 29.1 L (34.0-46.0) % MCV 100.1 H (80.0-100.0) fL MCHC 29.8 L (31.0-37.0) g/dL RDW 16.2 H (11.5-15.5) % Plt Count 128 L (150-450) k/uL Lymphocytes # 0.3 L (1.0-4.8) k/uL Sodium 136 L (137-145) mmol/L Glucose 145 H (74-99) mg/dL POC Glucose (mg/dL) 141 H (75-99) mg/dL Calcium 7.4 L (8.4-10.2) mg/dL Urine Appearance (Clear) Urine Protein (Negative) Urine Ketones (Negative) Urine Blood (Negative) Urine Bilirubin (Negative) Ur Leukocyte Esterase (Negative) Urine RBC (0-5) /hpf Urine WBC (0-5) /hpf Ur Squamous Epith Cells (0-4) /hpf Urine Bacteria (None) /hpf Hyaline Casts (0-2) /lpf Urine Mucus (None) /hpf 01/09/17 Range/Units 11:40 RBC (3.80-5.40) m/uL Hgb (11.4-16.0) gm/dL Hct (34.0-46.0) % MCV (80.0-100.0) fL MCHC (31.0-37.0) g/dL RDW (11.5-15.5) % Plt Count (150-450) k/uL Lymphocytes # (1.0-4.8) k/uL Sodium (137-145) mmol/L Glucose (74-99) mg/dL POC Glucose (mg/dL) 115 H (75-99) mg/dL Calcium (8.4-10.2) mg/dL Urine Appearance (Clear) Urine Protein (Negative) Urine Ketones (Negative) Urine Blood (Negative) Urine Bilirubin (Negative) Ur Leukocyte Esterase (Negative) Urine RBC (0-5) /hpf Urine WBC (0-5) /hpf Ur Squamous Epith Cells (0-4) /hpf Urine Bacteria (None) /hpf Hyaline Casts (0-2) /lpf Urine Mucus (None) /hpf Microbiology - Last 24 Hours (Table) 01/07/17 14:20 Blood Culture - Preliminary Blood No Growth after 24 hours Assessment and Plan Assessment: Assessment: #1 stage IV lung cancer with metastasis #2 hypoxia #3 mild troponin leak likelysecondary to a type II event due to oxygen supply and demand mismatch #4 left bundle branch block, unknown if this is new Plan: From cardiology's perspective, we'll continue the current medical treatment and follow-up with the patient on when necessary case.
[2017-01-09] MEDS: HYDROcodone/APAP 10-325MG 1 EACH TAB PO PRN (15:37)
[2017-01-09 17:01] LABS: Glucose,Whole Blood 152 mg/dL (75-99)
[2017-01-09 21:32] LABS: Glucose,Whole Blood 115 mg/dL (75-99)
[2017-01-10] MEDS: methylPREDNISolone SOD SUCCI 125 MG/2 ML VIAL IV SCH (00:31)
[2017-01-10] MEDS: HYDROcodone/APAP 10-325MG 1 EACH TAB PO PRN ×4 (00:49→18:52)
--- NOTE | 2017-01-10 00:54 | P.PN ---
Subjective Progress Note Date: 01/09/17 Principal diagnosis: Shortness of breath with COPD exacerbation Patient is a 71-year-old female patient with history of stage IV lung cancer with metastasis to the bone diagnosed in August 2016 status post chemotherapy treatment about a month ago and chemotherapy came to ER with complaints of shortness of breath and found to be hypoxic in the ER. Patient is also complaining of rib pains and she came to the hospital. Patient does have a history of metastatic lung cancer to the bones and also to liver. Patient is a poor historian and most the history was taken from her family at bedside. Patient was also having shortness of breath for the past few days. Initial chest x-ray showed no acute cardio process Troponins are slightly elevated on admission EKG showed sinus rhythm with a bundle branch block of unclear duration. Patient denied any chest pain at this time. Due to her stage IV lung cancer and underlying medical problems patient has poor prognosis and family is considering hospice care at this time. 01/09/2017 Patient will be continued on pain management. Patient denied any complaints of chest pain or short of breath. No acute overnight issues. No fever no chills.. Patient will be followed by hospice care. Objective - Vital Signs Vital signs: Vital Signs Temp 97.8 F 01/09/17 19:56 Pulse 73 01/09/17 19:56 Resp 14 01/09/17 20:00 BP 117/63 01/09/17 19:56 Pulse Ox 97 01/09/17 19:56 Intake & Output 01/09/17 01/09/17 01/10/17 06:59 18:59 06:59 Intake Total 40 450 Output Total 100 Balance -60 450 Weight Intake: Intake, IV Titration 450 Amount D5-0.45% NaCl with KCl 450 20Meq/l 1,000 ml @ 75 mls /hr IV .[id number] KHUSHI Rx#: [id number] Oral 40 Output: Urine 100 Other: Voiding Method Bedside Commode # Voids 0 1 - Exam PHYSICAL EXAMINATION: Patient is lying in the bed comfortably, no acute distress, awake alert but seems to be confused HEENT: Normocephalic. Neck is supple. Pupils reactive. Nostrils clear. Oral cavity is moist. Ears reveal no drainage. Neck reveals no JVD, carotid bruits, or thyromegaly. CHEST EXAMINATION: Trachea is central. Symmetrical expansion. Bilateral air entry diminished basally. No wheezing. CARDIAC: Normal S1, S2 with no gallops. No murmurs ABDOMEN: Soft. Bowel sounds normal. No organomegaly. No abdominal bruits. Extremities: reveal no edema. No clubbing or cyanosis Neurologically awake, alert, oriented 1-2. Able to move all extremities. Skin: No rash or skin lesions. Psychiatric: Cooperative could not be assessed Musculoskeletal: No joint swelling or deformity. Normal range of motion. - Labs CBC & Chem 7: 01/09/17 06:32 01/09/17 06:32 Labs: Abnormal Lab Results - Last 24 Hours (Table) 01/09/17 01/09/17 01/09/17 Range/Units 05:57 06:32 06:32 RBC 2.91 L (3.80-5.40) m/uL Hgb 8.7 L (11.4-16.0) gm/dL Hct 29.1 L (34.0-46.0) % MCV 100.1 H (80.0-100.0) fL MCHC 29.8 L (31.0-37.0) g/dL RDW 16.2 H (11.5-15.5) % Plt Count 128 L (150-450) k/uL Lymphocytes # 0.3 L (1.0-4.8) k/uL Sodium 136 L (137-145) mmol/L Glucose 145 H (74-99) mg/dL POC Glucose (mg/dL) 141 H (75-99) mg/dL Calcium 7.4 L (8.4-10.2) mg/dL 01/09/17 01/09/17 01/09/17 Range/Units 11:40 16:34 21:20 RBC (3.80-5.40) m/uL Hgb (11.4-16.0) gm/dL Hct (34.0-46.0) % MCV (80.0-100.0) fL MCHC (31.0-37.0) g/dL RDW (11.5-15.5) % Plt Count (150-450) k/uL Lymphocytes # (1.0-4.8) k/uL Sodium (137-145) mmol/L Glucose (74-99) mg/dL POC Glucose (mg/dL) 115 H 152 H 115 H (75-99) mg/dL Calcium (8.4-10.2) mg/dL Microbiology - Last 24 Hours (Table) 01/07/17 14:20 Blood Culture - Preliminary Blood No Growth after 48 hours Assessment and Plan Assessment: #1 stage IV lung cancer metastatic to bones and liver. Status post chemo about a month back #2 hypoxia on admission. Currently saturating well on room air #3 troponin elevation/leak likely due to demand mismatch. Suspected NSTEMI #4 left bundle branch block of unknown duration #5 generalized aches and pains due to metastasis #6 GERD and hiatal hernia history #7 hypertension. Controlled #8 shortness of breath with acute COPD exacerbation on admission improved. Plan: Patient be continued on pain management and IV hydration. 2-D echo was done to assess left ventricle systolic function. We will continue the current management. Due to underlying medical problems and metastatic lung cancer family is considering comfort care/hospice at the time. We will continue the current management and further recommendations based on the clinical course.
[2017-01-10 07:05] LABS: Glucose,Whole Blood 146 mg/dL (75-99)
[2017-01-10] MEDS ORDERED: methylPREDNISolone SOD SUCCI 40 MG/ML 1 ML VIAL IV SCH (08:00)
[2017-01-10] MEDS: INSULIN LISPRO (humaLOG) 300 UNIT/3 ML VIAL SQ SCH ×4 (08:32→21:31)
[2017-01-10] MEDS: LEVOTHYROXINE 75 MCG TAB PO SCH (08:32)
[2017-01-10] MEDS: PANTOPRAZOLE 40 MG TABLET PO SCH ×2 (08:33→19:16)
[2017-01-10] MEDS: OXYBUTYNIN CHLORIDE 5 MG TAB PO SCH ×3 (08:34→21:32)
[2017-01-10] MEDS: LACTULOSE 20 GM/30 ML CUP PO SCH ×2 (08:34→21:30)
[2017-01-10] MEDS: MORPHINE SULFATE ER 30 MG TABLET PO SCH ×2 (08:44→21:29)
[2017-01-10] MEDS: SYMBICORT 160-4.5 MCG INHALER INHALATION SCH ×2 (08:52→20:42)
[2017-01-10] MEDS: IPRATROPIUM-ALBUTEROL 3 ML NEB INHALATION SCH ×4 (08:52→20:42)
[2017-01-10 12:04] LABS: Glucose,Whole Blood 117 mg/dL (75-99)
[2017-01-10] MEDS: D5-0.45% NACL WITH KCL 20MEQ/L 1,000 ML IV SCH ×2 (12:59→15:07)
[2017-01-10] MEDS: predniSONE 20 MG TAB PO SCH (15:06)
[2017-01-10 17:19] LABS: Glucose,Whole Blood 117 mg/dL (75-99)
[2017-01-10 21:17] LABS: Glucose,Whole Blood 127 mg/dL (75-99)
[2017-01-10] MEDS: MORPHINE SULFATE 10 MG/ML SYRINGE IV PRN (22:46)
--- NOTE | 2017-01-11 00:04 | P.PN ---
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 Patient is also complaining of rib pains and she came to the hospital. Patient does have a history of metastatic lung cancer to the bones and also to liver. Patient is a poor historian and most the history was taken from her family at bedside. Patient was also having shortness of breath for the past few days. Initial chest x-ray showed no acute cardio process Troponins are slightly elevated on admission EKG showed sinus rhythm with a bundle branch block of unclear duration. Patient denied any chest pain at this time. Due to her stage IV lung cancer and underlying medical problems patient has poor prognosis and family is considering hospice care at this time. 01/09/2017 Patient will be continued on pain management. Patient denied any complaints of chest pain or short of breath. No acute overnight issues. No fever no chills.. Patient will be followed by hospice care. 01/10/2017 Patient is very confused but awake and alert. Breathing status much improved now. IV steroids changed to by mouth. Patient is a poor historian due to confusion. No fever no chills no acute overnight issues. Current medications reviewed Objective - Vital Signs Vital signs: Vital Signs Temp 96.3 F L 01/10/17 15:00 Pulse 88 01/10/17 15:00 Resp 16 01/10/17 15:00 BP 144/77 01/10/17 15:00 Pulse Ox 94 L 01/10/17 15:00 Intake & Output 01/10/17 01/10/17 01/11/17 06:59 18:59 06:59 Intake Total 1200 600 Balance 1200 600 Intake: Intake, IV Titration 1200 600 Amount D5-0.45% NaCl with KCl 1200 600 20Meq/l 1,000 ml @ 75 mls /hr IV .[id number] [facility] Rx#: [id number] Other: Voiding Method Bedside Commode # Voids 2 1 - Exam PHYSICAL EXAMINATION: Patient is lying in the bed comfortably, no acute distress, awake alert but confused HEENT: Normocephalic. Neck is supple. Pupils reactive. Nostrils clear. Oral cavity is moist. Ears reveal no drainage. Neck reveals no JVD, carotid bruits, or thyromegaly. CHEST EXAMINATION: Trachea is central. Symmetrical expansion. Bilateral air entry diminished basally. No wheezing. CARDIAC: Normal S1, S2 with no gallops. No murmurs ABDOMEN: Soft. Bowel sounds normal. No organomegaly. No abdominal bruits. Extremities: reveal no edema. No clubbing or cyanosis Neurologically awake, alert, oriented 1. Able to move all extremities. Skin: No rash or skin lesions. Psychiatric: Cooperative could not be assessed Musculoskeletal: No joint swelling or deformity. Normal range of motion. - Labs CBC & Chem 7: 01/09/17 06:32 01/09/17 06:32 Labs: Abnormal Lab Results - Last 24 Hours (Table) 01/10/17 01/10/17 01/10/17 Range/Units 06:58 11:48 17:13 POC Glucose (mg/dL) 146 H 117 H 117 H (75-99) mg/dL 01/10/17 Range/Units 21:11 POC Glucose (mg/dL) 127 H (75-99) mg/dL Microbiology - Last 24 Hours (Table) 01/07/17 14:20 Blood Culture - Preliminary Blood No Growth after 72 hours Assessment and Plan Assessment: #1 stage IV lung cancer metastatic to bones and liver. Status post chemo about a month back #2 hypoxia on admission. Currently saturating well on room air #3 troponin elevation/leak likely due to demand mismatch. Suspected NSTEMI #4 left bundle branch block of unknown duration #5 generalized aches and pains due to metastasis #6 GERD and hiatal hernia history #7 hypertension. Controlled #8 shortness of breath with acute COPD exacerbation on admission improved. Plan: Patient be continued on pain management and IV hydration. 2-D echo was done to assess left ventricle systolic function. We will continue the current management. IV methylprednisolone changed to prednisone today. Due to underlying medical problems and metastatic lung cancer family is considering comfort care/hospice at the time. We will continue the current management and further recommendations based on the clinical course.
[2017-01-11] MEDS: HYDROcodone/APAP 10-325MG 1 EACH TAB PO PRN ×2 (02:30→09:36)
[2017-01-11] MEDS: MORPHINE SULFATE 10 MG/ML SYRINGE IV PRN ×5 (03:15→16:07)
[2017-01-11] MEDS: LEVOTHYROXINE 75 MCG TAB PO SCH (06:22)
[2017-01-11 07:27] LABS: Glucose,Whole Blood 107 mg/dL (75-99)
[2017-01-11 07:40] VITALS: BP 118/71; RESP 16; TEMP 97.5
[2017-01-11] MEDS: IPRATROPIUM-ALBUTEROL 3 ML NEB INHALATION SCH ×2 (08:02→11:26)
[2017-01-11] MEDS: SYMBICORT 160-4.5 MCG INHALER INHALATION SCH (08:02)
[2017-01-11 08:06] VITALS: PULSE 88
[2017-01-11] MEDS: INSULIN LISPRO (humaLOG) 300 UNIT/3 ML VIAL SQ SCH ×2 (08:15→12:24)
[2017-01-11] MEDS: MORPHINE SULFATE ER 30 MG TABLET PO SCH (08:21)
[2017-01-11] MEDS: PANTOPRAZOLE 40 MG TABLET PO SCH (08:21)
[2017-01-11] MEDS: LACTULOSE 20 GM/30 ML CUP PO SCH (08:21)
[2017-01-11] MEDS: predniSONE 20 MG TAB PO SCH (08:22)
[2017-01-11] MEDS: OXYBUTYNIN CHLORIDE 5 MG TAB PO SCH (08:23)
[2017-01-11] MEDS ORDERED: BISACODYL 10 MG SUPP RECTAL STA (11:48)
[2017-01-11] MEDS ORDERED: NA PHOS,M-B/NA PHOS,DI-BA 133 ML ENEMA RECTAL STA (11:48)
[2017-01-11 12:19] LABS: Glucose,Whole Blood 108 mg/dL (75-99)
[2017-01-11 14:14] VITALS: BMI 21.9
[2017-01-11] MEDS: D5-0.45% NACL WITH KCL 20MEQ/L 1,000 ML IV SCH (16:03)
--- NOTE | 2017-01-13 00:53 | P.DS ---
Providers Date of admission: 01/07/17 16:10 Expected date of discharge: 01/11/17 Attending physician: Vania Martins Consults: 01/07/17 16:30 Consult Physician Routine Consulting Provider: Kelly Ochoa Consult Reason/Comments: Stage IV lung cancer Do you want consulting provider notified?: Yes, Notify in am Primary care physician: Alexa Lozoya Hospital Course: Discharge diagnosis #1 stage IV lung cancer metastatic to bones and liver. Status post chemo about a month back #2 hypoxia on admission. Currently saturating well on room air #3 troponin elevation/leak likely due to demand mismatch. Suspected NSTEMI #4 left bundle branch block of unknown duration #5 generalized aches and pains due to metastasis #6 GERD and hiatal hernia history #7 hypertension. Controlled #8 shortness of breath with acute COPD exacerbation on admission improved. Hospital course Patient is a 71-year-old female patient with history of stage IV lung cancer with metastasis to the bone diagnosed in August 2016 status post chemotherapy treatment about a month ago and chemotherapy came to ER with complaints of shortness of breath and found to be hypoxic in the ER. Patient is also complaining of rib pains and she came to the hospital. Patient does have a history of metastatic lung cancer to the bones and also to liver. Patient is a poor historian and most the history was taken from her family at bedside. Patient was also having shortness of breath for the past few days. Initial chest x-ray showed no acute cardio process Troponins are slightly elevated on admission EKG showed sinus rhythm with a bundle branch block of unclear duration. Patient denied any chest pain at this time. Due to her stage IV lung cancer and underlying medical problems patient has poor prognosis and family is considering hospice care at this time. 01/09/2017 Patient will be continued on pain management. Patient denied any complaints of chest pain or short of breath. No acute overnight issues. No fever no chills.. Patient will be followed by hospice care. 01/10/2017 Patient is very confused but awake and alert. Breathing status much improved now. IV steroids changed to by mouth. Patient is a poor historian due to confusion. No fever no chills no acute overnight issues. 01/11/2017 Patient is awake alert but confused sometimes. Presented status much improved. Otherwise patient is to be discharged home with hospice care as per family agreement Patient was continued on pain management and IV hydration. 2-D echo was done to assess left ventricle systolic function. Showed normal ejection fraction. Patient was seen by cardiology and oncology. Patient was visiting on admission. Was on IV steroids. IV methylprednisolone changed to prednisone. Due to underlying medical problems and metastatic lung cancer family is considering comfort care/hospice at the time. Discharge physical examination was done Total time taken greater than 35 minutes including 18 minutes for counseling and coordination of care. Patient Condition at Discharge: Fair Plan - Discharge Summary Discharge Rx Participant: No New Discharge Prescriptions: New predniSONE 20 mg PO DAILY #3 tab LORazepam [Ativan] 0.5 mg PO QID PRN #20 tab PRN Reason: Anxiety MORPHINE ORAL LIS CONC 20mg/mL [Roxanol Oral Soln Conc 20MG/ML] 5 mg PO Q4H PRN #30 ml PRN Reason: Pain Atropine Ophth Soln 1% 5Ml [Isopto Atropine 1% 5Ml] 2 drop SUBLINGUAL Q4-6H # 1 bottle Continue Morphine Sulfate ER [Ms Contin] 30 mg PO Q12HR HYDROcodone/APAP 10-325MG [[place] 10-325] 1 - 2 tab PO Q6H PRN PRN Reason: Pain Oxybutynin Chloride [Ditropan] 5 mg PO TID Levothyroxine Sodium [Synthroid] 75 mcg PO DAILY Omeprazole [PriLOSEC] 20 mg PO AC-BID Lactulose 10 gm PO BID LORazepam [Ativan] 0.5 mg PO HS PRN PRN Reason: Anxiety Discharge Medication List HYDROcodone/APAP 10-325MG [[place] 10-325] 1 - 2 tab PO Q6H PRN 01/07/17 [History] LORazepam [Ativan] 0.5 mg PO HS PRN 01/07/17 [History] Lactulose 10 gm PO BID 01/07/17 [History] Levothyroxine Sodium [Synthroid] 75 mcg PO DAILY 01/07/17 [History] Morphine Sulfate ER [Ms Contin] 30 mg PO Q12HR 01/07/17 [History] Omeprazole [PriLOSEC] 20 mg PO AC-BID 01/07/17 [History] Oxybutynin Chloride [Ditropan] 5 mg PO TID 01/07/17 [History] Atropine Ophth Soln 1% 5Ml [Isopto Atropine 1% 5Ml] 2 drop SUBLINGUAL Q4-6H #1 bottle 01/11/17 [Rx] LORazepam [Ativan] 0.5 mg PO QID PRN #20 tab 01/11/17 [Rx] MORPHINE ORAL LIS CONC 20mg/mL [Roxanol Oral Soln Conc 20MG/ML] 5 mg PO Q4H PRN #30 ml 01/11/17 [Rx] predniSONE 20 mg PO DAILY #3 tab 01/11/17 [Rx] Patient Instructions/Handouts: How to Stop Smoking (DC) Activity/Diet/Wound Care/Special Instructions: [facility]: #[phone] Discharge Disposition: HOME WITH HOSPICE
== END 2017-01-11 16:36 | disposition hospice, home (50) | DRG 190 ==
LOC: EC 13:58 → 6SEL 16:10 → 3SUR 01-09 15:06 → 4MS4W 01-10 09:49
PROVIDERS: ADMIT Internal Medicine; ATTEND Internal Medicine
DX: J44.1 Chronic obstructive pulmonary disease with (acute) exacerbation (principal); I21.A1 Myocardial infarction type 2; D61.818 Other pancytopenia; C78.7 Secondary malignant neoplasm of liver and intrahepatic bile duct; C79.51 Secondary malignant neoplasm of bone; C34.90 Malignant neoplasm of unspecified part of unspecified bronchus or lung; E86.0 Dehydration; I10 Essential (primary) hypertension; Z51.5 Encounter for palliative care; I44.7 Left bundle-branch block, unspecified; R09.02 Hypoxemia; K44.9 Diaphragmatic hernia without obstruction or gangrene; K59.00 Constipation, unspecified; F40.240 Claustrophobia; K21.9 Gastro-esophageal reflux disease without esophagitis; Z79.891 Long term (current) use of opiate analgesic; Z79.899 Other long term (current) drug therapy; Z92.21 Personal history of antineoplastic chemotherapy; Z87.11 Personal history of peptic ulcer disease; Z90.49 Acquired absence of other specified parts of digestive tract; Z87.891 Personal history of nicotine dependence; Z92.3 Personal history of irradiation; Z80.9 Family history of malignant neoplasm, unspecified
CPT/HCPCS: 36415; 71020; 80048; 80053; 81001; 82550; 82553; 82803; 83605; 83735; 83880; 84484; 85025; 85610; 85730; 87040; 93005; 93306; 94640; 96374; 99285